=== PATIENT | female | born 1955 | race Caucasian/White ===

== ENCOUNTER 2016-12-09 17:50 | Emergency (ER) | payer BC ==
[~2016-12-09] VITALS: Ht 167.6 cm; Wt 166.3 kg
[~2016-12-09 17:50] MED LIST: AMLODIPINE BESYL5 MG PO; DESYREL100 MG PO; DIOVAN HCT 11 TABLE1 PO; LEXAPRO10 MG PO; LISINOPRIL20 MG PO; LORAZEPAM0.5 MG PO; SERTRALINE HCL50 MG PO; TRAZODONE HCL50 MG PO; VENLAFAXINE HC150 M1 PO; ZOLPIDEM TARTRA10 MG PO
[2016-12-09 19:37] VITALS: BP 211/85
== END 2016-12-09 19:40 | disposition home or self-care (01) ==
LOC: EME 17:50 → RME 17:50
DX: S62.641A Nondisplaced fracture of proximal phalanx of left index finger, initial encounter for closed fracture (principal); S81.812A Laceration without foreign body, left lower leg, initial encounter; W18.09XA Striking against other object with subsequent fall, initial encounter; Y92.007 Garden or yard of unspecified non-institutional (private) residence as the place of occurrence of the external cause; Y93.H2 Activity, gardening and landscaping; I10 Essential (primary) hypertension; E11.9 Type 2 diabetes mellitus without complications
CPT/HCPCS: 73140; 99281; 99284